=== PATIENT | female | born 1985 | race Caucasian/White ===

== ENCOUNTER 2024-12-16 20:02 | Emergency (ER) | payer MEDICAID ==
[~2024-12-16] VITALS: Ht 157.5 cm; Wt 100.0 kg
[2024-12-16 20:06] VITALS: BP 124/96; PULSE 82; RESP 18; TEMP 97.7; O2SAT 98
--- NOTE | 2024-12-16 21:15 | Physician Documentation ---
History of Present Illness ~ Chief Complaint: Flu Symptoms Stated Complaint: FLU SYMPTOMS Time Seen by MD: 20:25 OK to notify your PCP?: Yes Source: patient Mode of Arrival: POV Exam Limitations: no limitations HPI 39-year-old female presents via EMS for flu-like symptoms such as body aches since yesterday. She also is having reports of lower back pain. EMS gave 1 g of Tylenol and wrote. Medication Reconciliation Allergies: Coded Allergies: hydrocodone (Verified Allergy, Unknown, 12/16/24) Review of Systems All Other Systems at this time: Reviewed and Negative Physical Exam Vital Signs: Temperature: 97.7, Source: Oral, Heart Rate: 82, Respiratory Rate: 18, BP: 124/96, Pulse Oximetry: 98, Weight: 100.000 Oxygen Flow Rate: 0 Pulse Oximetry Reflects: adequate oxygenation Physical Exam General: Alert, no distress. HEENT: No injection, moist mucous membranes. Respiratory: No respiratory distress, equal chest rise and fall. Chest: No accessory muscle use. Cardiovascular: No cyanosis. Gastrointestinal: Nondistended. Extremities: Normal range of motion, no deformity. Neurologic: Oriented x4. Psychiatric: Normal mood and affect. Skin: Normal color, warm and dry. Progress Results/Orders Results/Orders Vital Signs 12/16/24 12/16/24 20:06 20:20 Temp 97.7 Pulse 82 Resp 18 B/P (MAP) 124/96 Pulse Ox 98 O2 Flow Rate 0 Medical Decision Making Findings Patient eloped after MSE. Departure Disposition: 07 LEFT AWOL/ELOPED Impression: Primary Impression: Eloped from emergency department Referrals: NO PRIMARY CARE PROVIDER (PCP) Additional Comment Medical Screen Exam This patient recieved a medical screening examination. After reviewing the in dividual's medical complaints with presenting symptoms and performing an appropriate physical examination, it was determined that no immediate life- threatening emergency medical condition is present. This individual is also not a women having contractions. Signature Scribe Signature: . Attestation: Scribed for Agata Arceo by Agata Serrano NP . 12/16/24 21:15 AGATA ARCEO Dec 16, 2024 21:15
== END 2024-12-16 21:26 | disposition left against medical advice (07) ==
LOC: ER 20:03
DX: J11.1 Influenza due to unidentified influenza virus with other respiratory manifestations (principal); M54.50 Low back pain, unspecified; Z88.5 Allergy status to narcotic agent
CPT/HCPCS: 99283